=== PATIENT | female | born 1995 | race Caucasian/White ===

== ENCOUNTER 2020-03-06 12:02 | Emergency (ER) | payer BC ==
--- NOTE | 2020-03-06 12:30 | ER Document Report ---
ED Medical Screen (RME) - General Chief Complaint: Leg Pain Stated Complaint: LEFT LEG PAIN/HALO RODS Time Seen by Provider: 03/06/20 12:22 Mode of Arrival: Wheelchair Notes: HPI; 24-year-old female presents emergency room complaining of worsening pain and drainage from pins that are in her left lower leg from a reconstructive ankle surgery. States the pain and drainage started 4 days ago. Denies any fevers. Did not call her surgeon. Has been taking Tylenol with minimal relief. PE: Alert and oriented x3. Mild distress noted. Lungs: Clear to auscultation without rales, rhonchi, wheezes. Heart: Regular rate rhythm without murmurs, rubs, gallops. Patient with multiple pins in her left lower leg, unable to fully assess the area in triage. Positive left pedal pulse. Capillary refill less than 3 seconds. I have greeted and performed a rapid initial assessment of this patient. A comprehensive ED assessment and evaluation of the patient, analysis of test results and completion of the medical decision making process will be conducted by additional ED providers. I have specifically instructed the patient or family members with the patient to immediately return to any nursing staff should anything change in the patient's condition or with their chief complaint. TRAVEL OUTSIDE OF THE [place] IN LAST 30 DAYS: No - Related Data Allergies/Adverse Reactions: gabapentin Allergy (Verified 03/06/20 12:22) delusional latex Allergy (Verified 03/06/20 12:22) Hives Past Medical History - Social History Chew tobacco use (# tins/day): No Frequency of alcohol use: None Drug Abuse: None Past Surgical History: Reports: Hx Orthopedic Surgery
[2020-03-06 13:09] LABS: ABSOLUTE EOSINOPHILS # (AUTO) 0.1 10^3/uL (0.0-0.6); ABSOLUTE LYMPHOCYTES (AUTO) 1.1 10^3/uL (0.5-4.7); ABSOLUTE MONOCYTES (AUTO) 0.6 10^3/uL (0.1-1.4); ABSOLUTE NEUT (AUTO) 6.8 10^3/uL (1.7-8.2); BASOPHILS % (AUTO) 0.2 % (0-2); EOSINOPHILS % (AUTO) 1.3 % (0-6); HEMATOCRIT 37.5 % (36.0-47.0); HEMOGLOBIN 12.7 g/dL (12.0-15.5); LYMPHOCYTES % (AUTO) 12.8 % (13-45); MEAN CORPUSCULAR HEMOGLOBIN 30.4 pg (27.0-33.4); MEAN CORPUSCULAR HGB CONC 33.9 g/dL (32.0-36.0); MEAN CORPUSCULAR VOLUME 90 fl (80-97); MONOCYTES % (AUTO) 6.4 % (3-13); PLATELET COUNT 378 10^3/uL (150-450); RED BLOOD COUNT 4.18 10^6/uL (3.72-5.28); RED CELL DISTRIBUTION WIDTH 12.7 % (11.5-14.0); SEGMENTED NEUTROPHILS % (AUTO) 79.3 % (42-78); TOTAL CELLS COUNTED % (AUTO) 100 %; WHITE BLOOD COUNT 8.6 10^3/uL (4.0-10.5)
[2020-03-06 13:27] LABS: ALBUMIN 3.9 g/dL (3.5-5.0); ALKALINE PHOSPHATASE 117 U/L (38-126); ANION GAP 6 (5-19); ASPARTATE AMINO TRANSFERASE 16 U/L (14-36); BILIRUBIN,TOTAL 0.4 mg/dL (0.2-1.3); BLOOD UREA NITROGEN 5 mg/dL (7-20); CALCIUM 9.5 mg/dL (8.4-10.2); CARBON DIOXIDE 28 mmol/L (22-30); CHLORIDE 102 mmol/L (98-107); GLUCOSE 103 mg/dL (75-110); POTASSIUM 4.4 mmol/L (3.6-5.0); TOTAL PROTEIN 7.1 g/dL (6.3-8.2)
--- NOTE | 2020-03-06 14:21 | ER Document Report ---
ED Extremity Problem, Lower - General Chief Complaint: Leg Pain Stated Complaint: LEFT LEG PAIN/HALO RODS Time Seen by Provider: 03/06/20 12:22 Mode of Arrival: Wheelchair Notes: CHIEF COMPLAINT: Left leg pain HPI: 24-year-old female visiting from [place] presenting with left lower leg pain. Patient has a halo external fixator on the left lower leg. States that February 02 in [facility] she had an Achilles repair, several ligaments repaired, bone shaving on the foot and lower leg. Patient was placed in the halo fixator, was following with her orthopedic surgeon weekly. States that she started having more pain around the upper pins and feels like the device has slightly shifted after striking it on something 4 days ago. States she was due to go home but had to stay in town visiting here because her dog ended up in a auto inspector ER with a problem. She is not on pain medication per the patient. She reports foul-smelling discharge from the pin insertion points on the left upper leg. No fever. ROS: See HPI - all other systems were reviewed and are otherwise negative Constitutional: no fever Integumentary: + rash Allergy: no hives Musculoskeletal: + extremity pain or swelling Neurological: no numbness/tingling MEDICATIONS: I agree with the patient medications as charted by the RN. ALLERGIES: I agree with the allergies as charted by the RN. PAST MEDICAL HISTORY/PAST SURGICAL HISTORY: Reviewed and agree as charted by RN. SOCIAL HISTORY: Reviewed and agree as charted by RN. FAMILY HISTORY: No significant familial comorbid conditions directly related to patient complaint EXAM: Reviewed vital signs as charted by RN. CONSTITUTIONAL: Alert and oriented and responds appropriately to questions. Well-appearing; well-nourished HEAD: Normocephalic; atraumatic EYES: Conjunctivae clear, sclerae non-icteric ENT: normal nose; no rhinorrhea; moist mucous membranes NECK: Supple without meningismus CARD: RRR; no murmurs, no clicks, no rubs, no gallops; symmetric distal pulses RESP: Normal chest excursion without splinting or tachypnea ABD/GI: non-distended BACK: The back appears normal EXT: External halo fixator device noted on the left lower extremity with several pins inserted into both the left foot, left calcaneus, left proximal tibia and fibular region. There is some erythema around the insertion point of the medial pin proximal left calf. There is some tearing of the skin in this region which patient indicates the orthopedic is aware of. Some yellowish serous discharge from the wound areas at the insertion points are noted. Dorsalis pedis and posterior tibial pulses are present in the left foot with capillary refill less than 3 seconds SKIN: Normal color for age and race; warm; dry; good turgor NEURO: Moves all extremities equally; Motor and sensory function intact PSYCH: The patient's mood and manner are appropriate. Grooming and personal h ygiene are appropriate. MDM: 24-year-old female visiting from [place] where she had external f ixator placement left lower leg for Achilles tendon repair, ligament repair bone shaving in the left lower leg. She is not on pain medicine and down here per the patient. She has some erythema and discharge from the pin areas proximal left calf. She states she did strike her lower leg in the halo device on something several days ago and is concerned things might have shifted. Initial screening labs ordered in triage do not show acute findings. Will obtain x-ray imaging. Patient will likely need to be started on antibiotics pending return home for her orthopedic to further evaluate TRAVEL OUTSIDE OF THE [place] IN LAST 30 DAYS: No - Related Data Allergies/Adverse Reactions: gabapentin Allergy (Verified 03/06/20 12:22) delusional latex Allergy (Verified 03/06/20 12:22) Hives Past Medical History - Social History Smoking Status: Never Smoker Chew tobacco use (# tins/day): No Frequency of alcohol use: None Drug Abuse: None Family History: Reviewed & Not Pertinent Patient has homicidal ideation: No Past Surgical History: Reports: Orthopedic Surgery Course - Re-evaluation Re-evalutation: 03/06/20 15:41 X-ray imaging does not show any acute findings. Does not appear that any of the rods have been shifted out of their original position. Will treat the patient's pain, place her on antibiotics she is to follow-up with her orthopedic surgeons in [place] as soon as possible - Laboratory Result Diagrams: 03/06/20 12:35 03/06/20 12:35 Laboratory results interpreted by me: 03/06/20 03/06/20 12:35 12:35 Lymph % (Auto) 12.8 L Seg Neutrophils % 79.3 H Sodium 135.6 L BUN 5 L Discharge - Discharge Clinical Impression: Postoperative cellulitis of surgical wound Condition: Stable Disposition: HOME, SELF-CARE Additional Instructions: Medications as prescribed no driving if taking narcotics for pain. Follow-up with your orthopedic surgeons in [place] as soon as possible for reevaluation of the leg. Prescriptions: Doxycycline Monohydrate 100 mg PO BID #28 capsule Oxycodone HCl/Acetaminophen [Percocet 5-325 mg Tablet] 1 tab PO Q4H PRN #15 tab PRN Reason:
[2020-03-06] MEDS ORDERED: MORPHINE SULFATE 10 MG/ML INJ IV ONE (14:22)
[2020-03-06] MEDS ORDERED: CEFAZOLIN 2 GM/D5W RTU 2 GM/50 ML RTUPB IV ONE (14:22)
[2020-03-06] MEDS: ONDANSETRON HCL INJ/PF 4 MG/2 ML SDV IV ONE ×2 (14:53→14:55)
[2020-03-06] MEDS ORDERED: CEFAZOLIN SODIUM 2 GM in DEXTROSE 5%-WATER 100 ML IV ONE (15:15)
[2020-03-06 15:37] LABS: URINE AMPHETAMINES SCREEN NEGATIVE; URINE BARBITURATES SCREEN NEGATIVE; URINE BENZODIAZEPINES SCREEN NEGATIVE; URINE COCAINE SCREEN NEGATIVE; URINE MARIJUANA (THC) SCREEN NEGATIVE; URINE METHADONE SCREEN NEGATIVE; URINE PHENCYCLIDINE SCREEN NEGATIVE
--- NOTE | 2020-03-06 15:39 | RADIOLOGY REPORT (SQ) ---
EXAM DESCRIPTION: FOOT LEFT 2 VIEWS IMAGES COMPLETED DATE/TIME: 03/06/2020 3:30 pm REASON FOR STUDY: pin placement COMPARISON: None. NUMBER OF VIEWS: Two views. TECHNIQUE: AP and lateral radiographic images acquired of the left foot. LIMITATIONS: None. FINDINGS: AP and lateral views show the external fixation around the ankle and foot. IMPRESSION: External fixation. Refer to a operative note for further information. TECHNICAL DOCUMENTATION: JOB ID: [id number] 2010 [employer]- All Rights Reserved Reading location - IP/workstation name: [email or web address]
--- NOTE | 2020-03-06 15:40 | RADIOLOGY REPORT (SQ) ---
EXAM DESCRIPTION: TIBIA FIBULA LEFT IMAGES COMPLETED DATE/TIME: 03/06/2020 3:30 pm REASON FOR STUDY: pain COMPARISON: None. NUMBER OF VIEWS: Four views. TECHNIQUE: Two radiographic images acquired of the left tibia and fibula to include the knee and ank le in at least one projection. LIMITATIONS: None. FINDINGS: Views of the left tibia and fibula show an external fixator in place. IMPRESSION: External fixation. Refer to operative note for further information. TECHNICAL DOCUMENTATION: JOB ID: [id number] 2010 [employer]- All Rights Reserved Reading location - IP/workstation name: [email or web address]
[2020-03-06] MEDS ORDERED: OXYCODONE-ACETAMINOPHEN 5-325 MG TABLET PO ONE (16:34)
[2020-03-06 16:58] VITALS: BP 120/70
== END 2020-03-06 16:57 | disposition home or self-care (01) ==
LOC: ER 12:02
DX: M96.89 Other intraoperative and postprocedural complications and disorders of the musculoskeletal system (principal); M79.605 Pain in left leg; R21 Rash and other nonspecific skin eruption; Z91.040 Latex allergy status
CPT/HCPCS: 99283; 96375; 96365; 36415; 87040; 83605; 84703; 85025; 80053; 80307; 73620; 73590; J0690; J2270; J7060; J2405